=== PATIENT | female | born 1965 | race Caucasian/White ===

== ENCOUNTER 2019-02-18 04:14 | Inpatient (IN) | payer BC ==
[~2019-02-18] VITALS: Ht 160 cm; Wt 70.3 kg
[2019-02-18 04:18] VITALS: BP_SYST 157
[2019-02-18] MEDS ORDERED: NACL 0.9% 1,000 ML IV ONE (04:28)
[2019-02-18] MEDS ORDERED: ONDANSETRON HCL 4 MG/2 ML VIAL IVP ONE (04:30)
[2019-02-18] MEDS ORDERED: MORPHINE 4 MG/ML INJ. SYRINGE IVP ONE (04:45)
[2019-02-18 04:54] LABS: BASOPHILS % (AUTO) 0.4 % (0.0-2.0); EOSINOPHILS # (AUTO) 0.1 K/uL (0.0-0.4); HEMOGLOBIN 14.7 g/dL (12.0-16.0); LYMPHOCYTES # (AUTO) 2.3 K/uL (1.0-5.5); LYMPHOCYTES % (AUTO) 26.1 % (20.5-51.5); MEAN CORPUSCULAR HEMOGLOBIN 31 pg (27-31); MEAN CORPUSCULAR HGB CONC 33 % (32-36); MEAN CORPUSCULAR VOLUME 92 fL (79.0-98.0); MONOCYTES # (AUTO) 0.6 K/uL (0.0-1.0); MONOCYTES % (AUTO) 6.4 % (1.7-9.3); NEUTROPHILS # (AUTO) 5.8 K/uL (1.8-7.7); NEUTROPHILS % (AUTO) 66.1 % (40.0-70.0); PLATELET COUNT (AUTO) 246 K/uL (130-430); RED BLOOD CELL COUNT(AUTO) 4.79 MIL/uL (4.2-6.2); RED CELL DISTRIBUTION WIDTH 13.5 % (9.0-15.0); WHITE BLOOD COUNT (AUTO) 8.7 K/uL (4.8-10.8)
[2019-02-18 05:04] LABS: BILIRUBIN,URINE NEGATIVE (NEGATIVE); BLOOD, URINE NEGATIVE (NEGATIVE); CLARITY/URINE CLEAR (CLEAR); COLOR,URINE YELLOW (YELLOW); GLUCOSE,URINE NEGATIVE (NEGATIVE); KETONES,URINE NEGATIVE (NEGATIVE); LEUKOCYTE ESTERASE ,URINE NEGATIVE (NEGATIVE); NITRITE, URINE NEGATIVE (NEGATIVE); PROTEIN URINE NEGATIVE (NEGATIVE); UROBILINOGEN,URINE 0.2 (0.2-1.0)
[2019-02-18 05:08] LABS: PROTHROMBIN TIME 10.5 SECS (9.5-12.5)
[2019-02-18 05:09] LABS: CALCIUM 9.5 mg/dL (8.4-11.0); CREATININE 0.91 mg/dL (0.55-1.30); POTASSIUM 3.7 mmol/L (3.5-5.1)
[2019-02-18 05:12] LABS: ALBUMIN 3.8 g/dL (3.4-4.8); TOTAL BILIRUBIN 0.3 mg/dL (0.0-1.0)
[2019-02-18] MEDS ORDERED: PIPERACILLIN/TAZO 3.375 GM in NS 50 ML IV ONE (07:15)
[2019-02-18] MEDS ORDERED: PIPERACILLIN/TAZOBACTAM 3.375 GM/VIAL (ZOSYN) IV ONE (07:41)
[2019-02-18 09:10] VITALS: BP_SYST 119
[2019-02-18] MEDS ORDERED: WELSR100 PO (09:38)
[2019-02-18] MEDS ORDERED: ARMOUR (09:38)
[2019-02-18] MEDS ORDERED: armour thyroid (09:40)
[2019-02-18 12:02] VITALS: BP_SYST 103
[2019-02-18] MEDS ORDERED: ONDANSETRON HCL 4 MG/2 ML VIAL IVP PRN (14:15)
[2019-02-18] MEDS ORDERED: LORazepam 2 MG/ML VIAL IVP PRN (14:15)
[2019-02-18] MEDS ORDERED: MORPHINE 4 MG/ML INJ. SYRINGE IVP PRN ×2 (14:15)
[2019-02-18 16:15] VITALS: BP_SYST 106
[2019-02-18] MEDS: D5/0.45 NS 1,000 ML IV SCH ×2 (17:04→18:14)
[2019-02-18 20:00] VITALS: BP_SYST 110
[2019-02-19] VITALS (7 sets, daily range): BP systolic 97–120
[2019-02-19] MEDS: D5/0.45 NS 1,000 ML IV SCH ×2 (00:39→15:38)
[2019-02-19 07:12] LABS: ALBUMIN 3.2 g/dL (3.4-4.8); CALCIUM 8.9 mg/dL (8.4-11.0); CREATININE 0.64 mg/dL (0.55-1.30); POTASSIUM 3.3 mmol/L (3.5-5.1); TOTAL BILIRUBIN 0.6 mg/dL (0.0-1.0)
[2019-02-19] MEDS ORDERED: IOHEXOL 0 ML IV ONE (08:00)
[2019-02-19] MEDS ORDERED: KETOROLAC TROMETHAMINE 30 MG VIAL IVP PRN (08:15)
[2019-02-19] MEDS ORDERED: fentaNYL CITRATE/PF 100 MCG/2 ML AMP IVP PRN ×2 (08:15)
[2019-02-19] MEDS ORDERED: ONDANSETRON HCL 4 MG/2 ML VIAL IVP PRN (08:15)
[2019-02-19] MEDS ORDERED: POTASSIUM CHLORIDE 20 MEQ TAB.PRT.SR PO ONE (08:30)
[2019-02-19 08:34] LABS: RED BLOOD CELL COUNT(AUTO) 4.34 MIL/uL (4.2-6.2); WHITE BLOOD COUNT (AUTO) 6.8 K/uL (4.8-10.8)
[2019-02-19 08:35] LABS: BASOPHILS % (AUTO) 0.4 % (0.0-2.0); EOSINOPHILS % (AUTO) 0.7 % (0.0-4.0); HEMOGLOBIN 13.5 g/dL (12.0-16.0); LYMPHOCYTES # (AUTO) 1.7 K/uL (1.0-5.5); LYMPHOCYTES % (AUTO) 24.6 % (20.5-51.5); MEAN CORPUSCULAR HEMOGLOBIN 31 pg (27-31); MEAN CORPUSCULAR HGB CONC 34 % (32-36); MEAN CORPUSCULAR VOLUME 92 fL (79.0-98.0); MONOCYTES # (AUTO) 0.5 K/uL (0.0-1.0); MONOCYTES % (AUTO) 7.1 % (1.7-9.3); NEUTROPHILS # (AUTO) 4.6 K/uL (1.8-7.7); NEUTROPHILS % (AUTO) 67.2 % (40.0-70.0); PLATELET COUNT (AUTO) 200 K/uL (130-430); RED CELL DISTRIBUTION WIDTH 13.4 % (9.0-15.0)
[2019-02-19 08:36] LABS: EOSINOPHILS # (AUTO) 0.1 K/uL (0.0-0.4)
[2019-02-19] MEDS ORDERED: THYROID SCH (09:00)
[2019-02-19] MEDS ORDERED: HYDROcodone/ACETAMIN 5-325 MG TAB (NORCO/ VICODIN) PO PRN (09:15)
[2019-02-19] MEDS ORDERED: cefOXitin SODIUM 1 GM in D5W 50 ML IV ONE (09:45)
[2019-02-19] MEDS ORDERED: ONDANSETRON HCL 4 MG/2 ML VIAL ONE (10:35)
[2019-02-19] MEDS: buPROPion HCL 100 MG TABLET.SA PO SCH (12:09)
[2019-02-19] MEDS: cefOXitin SODIUM 1 GM in D5W 50 ML IV SCH ×2 (12:15→17:40)
[2019-02-20] MEDS: cefOXitin SODIUM 1 GM in D5W 50 ML IV SCH ×3 (00:37→12:02)
[2019-02-20] MEDS: D5/0.45 NS 1,000 ML IV SCH ×2 (00:39→10:15)
[2019-02-20 07:12] LABS: CALCIUM 8.6 mg/dL (8.4-11.0); CREATININE 0.66 mg/dL (0.55-1.30); POTASSIUM 3.3 mmol/L (3.5-5.1)
[2019-02-20 07:21] LABS: ALBUMIN 2.7 g/dL (3.4-4.8); TOTAL BILIRUBIN 0.3 mg/dL (0.0-1.0); WHITE BLOOD COUNT (AUTO) 7.6 K/uL (4.8-10.8)
[2019-02-20 07:22] LABS: BASOPHILS % (AUTO) 0.3 % (0.0-2.0); EOSINOPHILS % (AUTO) 0.1 % (0.0-4.0); HEMATOCRIT 37.6 % (36-48); HEMOGLOBIN 12.5 g/dL (12.0-16.0); LYMPHOCYTES # (AUTO) 1.6 K/uL (1.0-5.5); LYMPHOCYTES % (AUTO) 20.8 % (20.5-51.5); MEAN CORPUSCULAR HEMOGLOBIN 31 pg (27-31); MEAN CORPUSCULAR HGB CONC 33 % (32-36); MEAN CORPUSCULAR VOLUME 92 fL (79.0-98.0); MONOCYTES # (AUTO) 0.6 K/uL (0.0-1.0); MONOCYTES % (AUTO) 8.2 % (1.7-9.3); NEUTROPHILS # (AUTO) 5.4 K/uL (1.8-7.7); NEUTROPHILS % (AUTO) 70.6 % (40.0-70.0); PLATELET COUNT (AUTO) 155 K/uL (130-430); RED BLOOD CELL COUNT(AUTO) 4.08 MIL/uL (4.2-6.2); RED CELL DISTRIBUTION WIDTH 13.7 % (9.0-15.0)
[2019-02-20 08:05] VITALS: BP_SYST 119
[2019-02-20] MEDS: buPROPion HCL 100 MG TABLET.SA PO SCH (08:17)
[2019-02-20] MEDS ORDERED: NA PHOS,M-B/NA PHOS,DI-BA 118 ML (FLEET ENEMA) RC ONE (10:00)
[2019-02-20] MEDS ORDERED: POTASSIUM CHLORIDE 20 MEQ TAB.PRT.SR PO ONE (11:00)
[2019-02-20 11:28] VITALS: BP_SYST 124
[2019-02-20 15:10] VITALS: BP_SYST 101
[2019-02-20 15:44] VITALS: BP_SYST 101
[2019-02-28] MEDS ORDERED: ROCURONIUM BROMIDE 10 MG/ML (ZEMURON) IV ONE (07:25)
[2019-02-28] MEDS ORDERED: MIDAZOLAM HCL 5 MG/5 ML VIAL IVP ONE (07:25)
[2019-02-28] MEDS ORDERED: SEVOFLURANE 15 MIN GAS INH ONE (07:25)
[2019-02-28] MEDS ORDERED: fentaNYL CITRATE/PF 100 MCG/2 ML AMP IVP ONE (07:25)
[2019-02-28] MEDS ORDERED: PROPOFOL 200MG/ 20ML VIAL (DIPRIVAN) IV ONE (07:25)
[2019-02-28] MEDS ORDERED: CEFAZOLIN 2 GM IVPB PREMIX 50 ML IV ONE (07:25)
[2019-02-28] MEDS ORDERED: NS 1000 ML IV.SOLN IV ONE (07:25)
[2019-02-28] MEDS ORDERED: BUPIVACAINE /EPINEPHRINE/PF 0.5% 30 ML VIAL INJ ONE (07:25)
[2019-02-28] MEDS ORDERED: WATER FOR IRRIGATION,STERILE 1,000 ML IRRIG.SOLN IR ONE (07:25)
[2019-02-28] MEDS ORDERED: LR 1,000 ML IV.SOLN IV ONE (07:25)
== END 2019-02-20 16:18 | disposition home or self-care (01) | DRG 263 ==
LOC: SED 04:14 → SMU 08:10
PROVIDERS: ADMIT Preventive Medicine Preventive Medicine/Occupational Environmental Medicine; ATTEND Preventive Medicine Preventive Medicine/Occupational Environmental Medicine
PROC: 0FT44ZZ Resection of Gallbladder, Percutaneous Endoscopic Approach (ICD-10-PCS; principal; 2019-02-19 07:30)
DX: K81.0 Acute cholecystitis (principal); K82.1 Hydrops of gallbladder; R73.9 Hyperglycemia, unspecified; E03.9 Hypothyroidism, unspecified; E88.09 Other disorders of plasma-protein metabolism, not elsewhere classified; R74.0 Nonspecific elevation of levels of transaminase and lactic acid dehydrogenase [LDH]; E87.6 Hypokalemia; K59.00 Constipation, unspecified; Z98.51 Tubal ligation status
CPT/HCPCS: 36415; 71046-TC; 76700-TC; 80053; 81003; 82150-TC; 83690-TC; 84703; 85025; 85610-TC; 85730-TC; 86886; 86900; 86901; 87081; 88304; 93005; 94010; 94760; 96365; 96375; 99285; C1727; J0694; J2270; J2405; J2543; J7060; Q9967